=== PATIENT | female | born 1970 ===

== ENCOUNTER 2024-03-21 00:07 | Inpatient (IN) ==
[2024-03-21] MEDS ORDERED: IOPAMIDOL 100 ML BOTTLE IV ONE ×2 (00:08→10:53)
[2024-03-21] MEDS: IPRATROPIUM/ALBUTEROL 3 ML AMPUL.NEB NEB ONE (00:33)
[2024-03-21 00:40] LABS: Basophils # (Auto) 0.02 K/mcL (0.00-0.30); Basophils % (Auto) 0.1 % (0.0-2.0); Eosinophils # (Auto) 0 K/mcL (0.00-0.70); Eosinophils % (Auto) 0 % (0.0-7.0); Hematocrit 35.6 % (34.1-44.9); Hemoglobin 11.7 g/dL (11.2-15.7); Lymphocytes # (Auto) 10.33 K/mcL (1.50-4.80); Lymphocytes % (Auto) 47.6 % (15.5-49.0); Mean Corpuscular HGB Conc 32.9 g/dL (31.0-36.0); Mean Platelet Volume 9.5 fL (8.8-12.5); Monocytes # (Auto) 1.95 K/mcL (0.10-0.90); Neutrophils % (Auto) 42.9 % (38.0-78.0); Platelet Count 162 K/mcL (140-440); RBC 3.87 M/mcL (3.59-5.38); Red Cell Distribution Width 14.6 % (11.5-14.5); WBC 21.7 K/mcL (4.5-11.0)
[2024-03-21] MEDS: 0.9 % SODIUM CHLORIDE 1,000 ML IV ONE (00:50)
[2024-03-21] MEDS: methylPREDNISolone SOD SUCC 125 MG/2 ML VIAL IV ONE (00:50)
[2024-03-21 00:57] LABS: ALT/SGPT 11 U/L (<40); AST/SGOT 27 U/L (<32); Albumin 3.5 gm/dL (3.2-5.2); Albumin/Globulin Ratio 1.3 (1.0-2.3); Alkaline Phosphatase 94 U/L (39-117); Bilirubin,Total 1.3 mg/dL (0.1-1.0); Blood Urea Nitrogen 13 mg/dL (6-20); Calcium 8.3 mg/dL (8.6-10.4); Carbon Dioxide 29 mmol/L (22-30); Chloride 92 mmol/L (96-108); Globulin 2.7 gm/dL (2.2-3.7); Glomerular Filtration Rate 98; Glucose 95 mg/dL (70-105)
[2024-03-21] MEDS: fentaNYL 100 MCG/2 ML VIAL IV ONE (02:10)
[2024-03-21] MEDS: cefTRIAXone 2 GM in DEXTROSE 5% IN WATER 50 ML IV ONE (02:56)
[2024-03-21] MEDS: AZITHROMYCIN 500 MG in DEXTROSE 5% IN WATER 250 ML IV ONE (03:25)
[2024-03-21] MEDS ORDERED: IPRATROPIUM/ALBUTEROL 3 ML AMPUL.NEB NEB PRN (03:31)
[2024-03-21] MEDS ORDERED: ONDANSETRON 4 MG/2 ML VIAL IV PRN (08:59)
[2024-03-21] MEDS ORDERED: ACETAMINOPHEN 325 MG TABLET PO PRN (08:59)
[2024-03-21] MEDS: DOCUSATE SODIUM 100 MG CAPSULE PO SCH (10:58)
[2024-03-21] MEDS: oxyCODONE IR 5 MG TABLET PO PRN (10:58)
[2024-03-21] MEDS: ENOXAPARIN 40 MG/0.4 ML SYRINGE SQ SCH (10:59)
[2024-03-21] MEDS: NICOTINE 21 MG PATCH TOPICAL SCH (10:59)
[2024-03-21] MEDS: morphine 4 MG/ML VIAL IV PRN (11:01)
[2024-03-21] MEDS: IPRATROPIUM/ALBUTEROL 3 ML AMPUL.NEB NEB SCH (11:10)
[2024-03-21 13:09] LABS: INR 1.3 (0.9-1.1); Partial Thromboplastin Time 43.3 sec (20.0-37.0); Prothrombin Time 16.6 sec (11.9-14.5)
[2024-03-21 13:41] LABS: Amylase,Pleural Fluid 55 U/L
[2024-03-21] MEDS: 0.9 % SODIUM CHLORIDE 10 ML SYRINGE IV SCH (13:41)
[2024-03-21] MEDS: methylPREDNISolone SOD SUCC 125 MG/2 ML VIAL IV SCH (13:41)
[2024-03-21 13:46] LABS: Glucose,Pleural Fluid < 2 mg/dL
[2024-03-21 13:53] LABS: Appearance,Pleural Fluid Cloudy; Color,Pleural Fluid Yellow; LDH,Pleural Fluid 1400 U/L (<122); Lymphocytes,Pleural Fluid 3 %; Monocytes,Pleural Fluid 5 %; Neutrophils,Pleural Fluid 92 %; RBC,Pleural Fluid <50,000 /cumm
[2024-03-21] MEDS: cefTRIAXone 2 GM in DEXTROSE 5% IN WATER 50 ML IV SCH (17:10)
[2024-03-21] MEDS: POTASSIUM CHLORIDE 20 MEQ TABLET PO SCH (17:10)
[2024-03-21] MEDS ORDERED: IBUPROFEN 200 MG TABLET PO PRN (19:46)
[2024-03-21] MEDS ORDERED: PATIENTS OWN MEDICATION 1 DOSE MISCELL INH PRN (19:47)
[2024-03-21] MEDS ORDERED: BUDESONIDE FORMOTEROL INH PRN (19:48)
[2024-03-21] MEDS: GABAPENTIN 300 MG CAPSULE PO SCH (21:15)
[2024-03-21] MEDS: ALLOPURINOL 100 MG TABLET PO SCH (21:15)
[2024-03-21] MEDS: traZODone HCL 50 MG TABLET PO PRN (21:15)
[2024-03-21] MEDS: SENNOSIDES 1 TABLET PO SCH (21:15)
[2024-03-21] MEDS: PRAZOSIN 1 MG CAPSULE PO SCH (21:16)
[2024-03-22 07:09] LABS: ALT/SGPT 10 U/L (<40); AST/SGOT 19 U/L (<32); Albumin 3.7 gm/dL (3.2-5.2); Albumin/Globulin Ratio 1.1 (1.0-2.3); Alkaline Phosphatase 106 U/L (39-117); Bilirubin,Total 0.3 mg/dL (0.1-1.0); Blood Urea Nitrogen 17 mg/dL (6-20); Calcium 9.2 mg/dL (8.6-10.4); Carbon Dioxide 31 mmol/L (22-30); Chloride 92 mmol/L (96-108); Globulin 3.3 gm/dL (2.2-3.7); Glomerular Filtration Rate 98; Glucose 231 mg/dL (70-105)
[2024-03-22 07:13] LABS: Basophils # (Auto) 0.01 K/mcL (0.00-0.30); Basophils % (Auto) 0.1 % (0.0-2.0); Eosinophils # (Auto) 0 K/mcL (0.00-0.70); Eosinophils % (Auto) 0 % (0.0-7.0); Hematocrit 34.6 % (34.1-44.9); Hemoglobin 11.1 g/dL (11.2-15.7); Lymphocytes # (Auto) 9.29 K/mcL (1.50-4.80); Lymphocytes % (Auto) 55.5 % (15.5-49.0); Mean Cell Volume 93.8 fL (80.0-100.0); Mean Corpuscular HGB Conc 32.1 g/dL (31.0-36.0); Mean Platelet Volume 10.2 fL (8.8-12.5); Monocytes # (Auto) 0.13 K/mcL (0.10-0.90); Monocytes % (Auto) 0.8 % (1.0-12.0); Neutrophils % (Auto) 43.1 % (38.0-78.0); Platelet Count 186 K/mcL (140-440); RBC 3.69 M/mcL (3.59-5.38); Red Cell Distribution Width 14.4 % (11.5-14.5)
[2024-03-22] MEDS: VENLAFAXINE 75 MG CAP.XL.24H PO SCH (08:23)
[2024-03-22] MEDS: lamoTRIgine 25 MG TABLET PO SCH (08:24)
[2024-03-22] MEDS: LEVOTHYROXINE 150 MCG TABLET PO SCH (08:24)
[2024-03-22] MEDS: TIOTROPIUM BROMIDE 18 MCG INHALANT INH SCH (08:24)
[2024-03-22 09:12] LABS: WBC 16.8 K/mcL (4.5-11.0)
[2024-03-22] MEDS: AZITHROMYCIN 500 MG in DEXTROSE 5% IN WATER 250 ML IV SCH (09:28)
[2024-03-22] MEDS: POTASSIUM CHLORIDE 20 MEQ in DEXTROSE 5% IN WATER 250 ML IV ONE (12:27)
[2024-03-23 07:58] LABS: ALT/SGPT 11 U/L (<40); AST/SGOT 22 U/L (<32); Albumin 3.4 gm/dL (3.2-5.2); Albumin/Globulin Ratio 1.1 (1.0-2.3); Alkaline Phosphatase 91 U/L (39-117); Bilirubin,Total 0.2 mg/dL (0.1-1.0); Blood Urea Nitrogen 20 mg/dL (6-20); Calcium 9.2 mg/dL (8.6-10.4); Carbon Dioxide 27 mmol/L (22-30); Chloride 98 mmol/L (96-108); Globulin 3.1 gm/dL (2.2-3.7); Glomerular Filtration Rate 98; Glucose 148 mg/dL (70-105)
[2024-03-23 08:12] LABS: Basophils # (Auto) 0 K/mcL (0.00-0.30); Basophils % (Auto) 0 % (0.0-2.0); Eosinophils # (Auto) 0 K/mcL (0.00-0.70); Eosinophils % (Auto) 0 % (0.0-7.0); Hematocrit 32.5 % (34.1-44.9); Hemoglobin 10.2 g/dL (11.2-15.7); Lymphocytes # (Auto) 6.31 K/mcL (1.50-4.80); Mean Cell Volume 95.9 fL (80.0-100.0); Mean Corpuscular HGB Conc 31.4 g/dL (31.0-36.0); Mean Platelet Volume 9.6 fL (8.8-12.5); Monocytes # (Auto) 0.11 K/mcL (0.10-0.90); Neutrophils % (Auto) 40.2 % (38.0-78.0); Platelet Count 181 K/mcL (140-440); RBC 3.39 M/mcL (3.59-5.38); Red Cell Distribution Width 14.5 % (11.5-14.5)
[2024-03-23 08:27] LABS: WBC 10.9 K/mcL (4.5-11.0)
[2024-03-23] MEDS: POLYETHYLENE GLYCOL 3350 17 GM PACKET PO PRN (11:36)
[2024-03-23] MEDS: guaiFENesin/DEXTROMETHORPHAN 5ML UD CUP PO PRN (18:59)
[2024-03-24 07:03] LABS: Basophils # (Auto) 0 K/mcL (0.00-0.30); Basophils % (Auto) 0 % (0.0-2.0); Eosinophils # (Auto) 0 K/mcL (0.00-0.70); Eosinophils % (Auto) 0 % (0.0-7.0); Hematocrit 31.5 % (34.1-44.9); Hemoglobin 9.8 g/dL (11.2-15.7); Lymphocytes # (Auto) 4.96 K/mcL (1.50-4.80); Lymphocytes % (Auto) 59.6 % (15.5-49.0); Mean Cell Volume 97.5 fL (80.0-100.0); Mean Corpuscular HGB Conc 31.1 g/dL (31.0-36.0); Mean Platelet Volume 9.6 fL (8.8-12.5); Monocytes # (Auto) 0.51 K/mcL (0.10-0.90); Monocytes % (Auto) 6.1 % (1.0-12.0); Neutrophils % (Auto) 31.4 % (38.0-78.0); Platelet Count 180 K/mcL (140-440); RBC 3.23 M/mcL (3.59-5.38); Red Cell Distribution Width 14.9 % (11.5-14.5); WBC 8.3 K/mcL (4.5-11.0)
[2024-03-24 07:19] LABS: ALT/SGPT 23 U/L (<40); AST/SGOT 24 U/L (<32); Albumin 3.3 gm/dL (3.2-5.2); Albumin/Globulin Ratio 1.2 (1.0-2.3); Alkaline Phosphatase 86 U/L (39-117); Bilirubin,Total < 0.2 mg/dL (0.1-1.0); Blood Urea Nitrogen 17 mg/dL (6-20); Carbon Dioxide 27 mmol/L (22-30); Chloride 101 mmol/L (96-108); Globulin 2.7 gm/dL (2.2-3.7); Glomerular Filtration Rate 103; Glucose 167 mg/dL (70-105)
[2024-03-25 03:54] LABS: Nucleated Cells,Pleural Fld 78430 /cumm
[2024-03-25] MEDS ORDERED: predniSONE 20 MG TABLET PO SCH (08:00)
== END 2024-03-24 12:50 | disposition left against medical advice (07) | DRG 190 ==
LOC: ED 00:07 → INTOOBSV 05:02 → MEDSUR 05:02 → OBSVTOIN 05:02
PROVIDERS: ADMIT Internal Medicine; ATTEND Internal Medicine